=== PATIENT | female | born 1980 | race Caucasian/White ===

== ENCOUNTER 2020-12-02 09:12 | Outpatient (CLI) | payer SELFPAY | END 2020-12-02 09:13 | disposition EMS.NT | LOC: EMS 09:12 | DX: M79.10 Myalgia, unspecified site (principal); R44.9 Unspecified symptoms and signs involving general sensations and perceptions ==

== ENCOUNTER 2021-11-19 16:36 | Outpatient (CLI) | payer OTHER | END 2021-11-19 16:37 | disposition EMS.NT | LOC: EMS 16:36 | DX: R50.9 Fever, unspecified (principal); R05.9 Cough, unspecified; R11.2 Nausea with vomiting, unspecified; Z20.822 Contact with and (suspected) exposure to COVID-19 ==

== ENCOUNTER 2021-11-21 08:32 | Outpatient (CLI) | payer OTHER | END 2021-11-21 08:33 | disposition critical access hospital (66) | LOC: EMS 08:32 | DX: R11.2 Nausea with vomiting, unspecified (principal); M54.50 Low back pain, unspecified; R07.9 Chest pain, unspecified; M54.2 Cervicalgia; Z20.822 Contact with and (suspected) exposure to COVID-19 | CPT/HCPCS: A0425; A0427 ==

== ENCOUNTER 2021-12-09 17:15 | Outpatient (CLI) | payer OTHER | END 2021-12-09 17:16 | disposition EMS.NT | LOC: EMS 17:15 | DX: F41.9 Anxiety disorder, unspecified (principal) ==

== ENCOUNTER 2023-03-03 18:40 | Emergency (ER) | payer OTHER ==
[2023-03-03] MEDS ORDERED: ONDANSETRON 4 MG/2 ML VIAL IVP STA (19:19)
--- NOTE | 2023-03-03 19:20 | ED Physician Documentation ---
PD HPI ABD PAIN - Stated complaint Stated Complaint: N/V/D - Chief complaint Chief Complaint: Abd Pain - History obtained from History obtained from: Patient - History of Present Illness Timing - details: Gradual onset Quality: Aching Location: All over / everywhere Radiation: Other (None) Improved by: Vomiting, BM Worsened by: No: Eating, Moving, Breathing, Position, Palpation Associated symptoms: Vomiting. No: Fever, Nausea, Hematemesis, Diarrhea, Constipation, Melena, Hematochezia, Dysuria, Hematuria, Chest pain, Dizzy, Near syncope / syncope, Loss of appetite, Weight loss, Vaginal bleeding, Vaginal dc, Other - Additional information Additional information: 42-year-old female presents with generalized abdominal pain as well as nausea vomiting and shakiness after she stopped eating marijuana edibles. The patient states she used 10-12 edibles a day to help control her anxiety and ADHD but due to finances she tried to cut back and she feels like she is now "withdrawing" from marijuana edibles. She feels very anxious, has nausea and vomiting and feels shaky. She has not had any diarrhea, was constipated a few days ago but that has improved. She denies any fever or chills, no chest pain or difficulty breathing, no urinary symptoms. She denies any other drug use, is on Zoloft for anxiety. She does see a counselor as well but has not talked to them about this yet. Review of Systems Constitutional: reports: Reviewed and negative Eyes: reports: Reviewed and negative Ears: reports: Reviewed and negative Cardiac: reports: Reviewed and negative Respiratory: reports: Reviewed and negative GI: reports: Abdominal Pain, Nausea, Vomiting. denies: Abdominal Swelling, Constipation, Diarrhea, Hematemesis, Bloody / black stool : reports: Reviewed and negative Skin: reports: Reviewed and negative Musculoskeletal: reports: Reviewed and negative Neurologic: reports: Reviewed and negative Psychiatric: reports: Anxiety. denies: Depressed, Suicidal, Homicidal, Hallucinations, Delusions, Insomnia PD PAST MEDICAL HISTORY - Past Medical History Past Medical History: Yes Cardiovascular: None Respiratory: None Endocrine/Autoimmune: None GI: None Psych: Anxiety - Present Medications Home Medications: Ambulatory Orders Medication Instructions Recorded Confirmed Citalopram [CeleXA] 10 mg PO DAILY 11/21/21 11/21/21 Famotidine [Pepcid] 20 mg PO BID #14 tablet 11/21/21 Hydrocodone/Acetaminophen 1 each PO PRN PRN 11/21/21 11/21/21 [Hydrocodone-Acetamin 10-325 mg] Ondansetron Odt [Zofran Odt] 4 mg TL Q6H PRN 11/21/21 11/21/21 Ondansetron Odt [Zofran] 4 mg TL Q6H PRN #15 tablet 11/21/21 Promethazine Supp [Phenergan Supp] 25 mg [place] Q6H PRN #5 supp 11/21/21 hydroCHLOROthiazide [Hydrodiuril] 12.5 mg PO DAILY 11/21/21 11/21/21 Ondansetron Odt [Zofran] 4 mg TL Q6H PRN #10 tablet 03/03/23 - Allergies Allergies/Adverse Reactions: Allergies Allergy/AdvReac Type Severity Reaction Status Date / Time prochlorperazine Allergy Mild Anaphylaxis Verified 03/03/23 18:46 [From Compazine] lisinopril Allergy Hives Verified 03/03/23 18:46 metoclopramide [From Reglan] Allergy Hives Verified 03/03/23 18:46 morphine Allergy Hives Verified 03/03/23 18:46 - Social History Does the pt smoke?: No Smoking Status: Never smoker PD ED PE NORMAL - Vitals Vital signs reviewed: Yes - General General: Alert and oriented X 3, No acute distress, Well developed/nourished, Other (Patient in no acute distress but extremely anxious, talking fast.) - HEENT HEENT: Atraumatic, Moist mucous membranes - Cardiac Cardiac: RRR, No murmur, No gallop, No rub - Respiratory Respiratory: No respiratory distress, Clear bilaterally - Abdomen Abdomen: Normal bowel sounds, Soft, Non tender, Non distended, No organomegaly - Derm Derm: Normal color, Warm and dry, No rash - Extremities Extremities: No deformity, No edema - Neuro Neuro: Alert and oriented X 3 Eye Opening: Spontaneous Motor: Obeys Commands Verbal: Oriented GCS Score: 15 - Psych Psych: Normal mood, Normal affect Results - Vitals Vitals: Vital Signs - 24 hr 03/03/23 03/03/23 03/03/23 18:46 19:52 21:10 Temperature 37.5 C Heart Rate 94 84 77 Respiratory 16 18 18 Rate Blood Pressure 160/90 H 141/103 H 156/90 H O2 Saturation 99 100 98 Oxygen O2 Source Room air - Labs Labs: Laboratory Tests 03/03/23 03/03/23 03/03/23 19:48 19:48 20:03 WBC 10.9 H RBC 4.48 Hgb 11.3 L Hct 36.1 L MCV 80.6 L MCH 25.2 L MCHC 31.3 L RDW 14.9 Plt Count 396 MPV 9.2 Neut # (Auto) 8.8 H Lymph # (Auto) 1.3 L [place] # (Auto) 0.7 Eos # (Auto) 0.1 Baso # (Auto) 0.0 Absolute Nucleated RBC 0.00 Nucleated RBC % 0.0 Sodium 137 Potassium 3.3 L Chloride 103 Carbon Dioxide 25 Anion Gap 9.0 BUN 9 Creatinine 0.7 Estimated GFR (MDRD) 92 Glucose 97 POC Whole Bld Glucose 79 Calcium 9.5 Total Bilirubin 0.4 AST 18 ALT 8 L Alkaline Phosphatase 48 Total Protein 6.8 Albumin 4.2 Globulin 2.6 Albumin/Globulin Ratio 1.6 Lipase 13 Urine Color Urine Clarity Urine pH Ur Specific [place] Urine Protein Urine Glucose (UA) Urine Ketones Urine Occult Blood Urine Nitrite Urine Bilirubin Urine Urobilinogen Ur Leukocyte Esterase Ur Microscopic Review Urine Culture Comments 03/03/23 20:20 WBC RBC Hgb Hct MCV MCH MCHC RDW Plt Count MPV Neut # (Auto) Lymph # (Auto) [place] # (Auto) Eos # (Auto) Baso # (Auto) Absolute Nucleated RBC Nucleated RBC % Sodium Potassium Chloride Carbon Dioxide Anion Gap BUN Creatinine Estimated GFR (MDRD) Glucose POC Whole Bld Glucose Calcium Total Bilirubin AST ALT Alkaline Phosphatase Total Protein Albumin Globulin Albumin/Globulin Ratio Lipase Urine Color YELLOW Urine Clarity CLEAR Urine pH 7.0 Ur Specific [place] 1.010 Urine Protein NEGATIVE Urine Glucose (UA) NEGATIVE Urine Ketones 15 H Urine Occult Blood NEGATIVE Urine Nitrite NEGATIVE Urine Bilirubin NEGATIVE Urine Urobilinogen 0.2 (NORMAL) Ur Leukocyte Esterase NEGATIVE Ur Microscopic Review NOT INDICATED Urine Culture Comments NOT INDICATED PD Medical Decision Making - ED course Complexity details: reviewed results, re-evaluated patient, considered differential, d/w patient ED course: 42-year-old female presented with generalized abdominal pain as well as nausea vomiting diarrhea and shakiness. She attributes this to suddenly decreasing her marijuana consumption however she is continuing to use some marijuana. Patient is quite anxious on arrival here but has stable vital signs. Physical exam is otherwise unremarkable, she has no peritoneal signs, no vomiting here. I considered cannabinoid hyperemesis, gastroenteritis, pancreatitis, cholecystitis, less likely colitis or obstruction; she had no sx of UTI. We did obtain labs which are generally reassuring, she has a very mild leukocytosis at 10.9 with otherwise stable CBC, her CMP reveals mild hypokalemia, otherwise stable. Urinalysis negative for signs of infection. The patient received on 1 L of normal saline as well as 4 mg of IV Zofran and 1 mg of IV Ativan with significant improvement in her symptoms. She also received 15 mg of IV Toradol. Her abdominal pain is resolved, she has not had any nausea or vomiting here, she has been able to tolerate oral fluids here without difficulty. She is feeling substantially better. I discussed with patient this may be a viral illness, may be secondary to Her chronic cannabis use with cannabis hyperemesis or potentially stress response due to decreased use. In any case, I do not think that a CT scan would change the management today. I recommended she continue to reduce her cannabis use, adhere to a clear liquid diet for the next day or so until symptoms improve and she can take Zofran as needed for nausea and vomiting. If she has worsening symptoms, abdominal pain, fever or new concerns, return to the ER. Departure - Departure Disposition: 01 Home, Self Care Clinical Impression: Nausea and vomiting Qualifiers: Vomiting type: unspecified Qualified Code(s): R11.2 - Nausea with vomiting, unspecified Condition: Good Instructions: Abdominal Pain, ED Nausea Vomiting Prescriptions: Ondansetron Odt [Zofran] 4 mg TL Q6H PRN #10 tablet PRN Reason: Nausea / Vomiting Comments: You presented with nausea and vomiting. This may be due to your marijuana use or your sudden decrease in use. It does not appear to be due to a serious abdominal infection at this time. Your labs are stable. You responded well to medication here and have tolerated oral fluids. Please stick to clear liquids today (apple juice, sprite, gingerale, jello, etc). You can slowly advance your diet as tolerated in the next 1-2 days. I have given you a short course of nausea medication to use only if needed. Please follow up with your primary doctor in the next 1-2 weeks. Return if you have worsening symptoms. Medication sent to [facility] in [place]. Forms: PCP List Discharge Date/Time: 03/03/23 21:10
[2023-03-03] MEDS ORDERED: KETOROLAC 30 MG/ML VIAL IVP STA (19:45)
[2023-03-03 19:59] LABS: BASOPHILS % (AUTO) 0.3 %; EOSINOPHILS # (AUTO) 0.1 10^3/uL (0.0-0.7); EOSINOPHILS % (AUTO) 0.6 %; HCT - HEMATOCRIT 36.1 % (37.0-47.0); HGB - HEMOGLOBIN 11.3 g/dL (12.0-16.0); LYMPHOCYTES # (AUTO) 1.3 10^3/uL (1.5-3.5); MEAN CORPUSCULAR HEMOGLOBIN 25.2 pg (27.0-31.0); MEAN CORPUSCULAR HGB CONC 31.3 g/dL (32.0-36.0); MEAN CORPUSCULAR VOLUME 80.6 fL (81.0-99.0); MEAN PLATELET VOLUME 9.2 fL (7.9-10.8); MONOCYTES # (AUTO) 0.7 10^3/uL (0.0-1.0); MONOCYTES % (AUTO) 6.2 %; NEUTROPHILS # (AUTO) 8.8 10^3/uL (1.5-6.6); NEUTROPHILS % (AUTO) 80.5 %; PLT - PLATELET COUNT 396 10^3/uL (130-450); RED BLOOD COUNT 4.48 10^6/uL (4.20-5.40); RED CELL DISTRIBUTION WIDTH 14.9 % (12.0-15.0); WHITE BLOOD COUNT 10.9 x10^3/uL (4.8-10.8)
[2023-03-03] MEDS ORDERED: SODIUM CHLORIDE 0.9% 1,000 ML IV STA (20:06)
[2023-03-03] MEDS ORDERED: LORazepam 2 MG/ML VIAL IVP STA (20:06)
[2023-03-03 20:11] LABS: ALBUMIN 4.2 g/dL (3.2-5.5); ALBUMIN/GLOBULIN RATIO 1.6 (1.0-2.2); BILIRUBIN,TOTAL 0.4 mg/dL (0.2-1.0); CALCIUM 9.5 mg/dL (8.5-10.3); CREATININE 0.7 mg/dL (0.6-1.3); POTASSIUM 3.3 mmol/L (3.5-4.5); TOTAL PROTEIN 6.8 g/dL (6.4-8.9)
[2023-03-03 20:30] LABS: BILIRUBIN,URINE NEGATIVE (NEGATIVE); GLUCOSE, URINE (UA) NEGATIVE (NEGATIVE); KETONES,URINE (UA) 15 mg/dL (NEGATIVE); LEUKOCYTE ESTERASE, URINE NEGATIVE (NEGATIVE); NITRITE,URINE NEGATIVE (NEGATIVE); OCCULT BLOOD,URINE NEGATIVE (NEGATIVE); PROTEIN,URINE NEGATIVE (NEGATIVE); UROBILINOGEN,URINE 0.2 (NORMAL) E.U./dL (NORMAL)
[2023-03-03 20:33] LABS: CLARITY,URINE CLEAR (CLEAR)
[2023-03-03] MEDS ORDERED: ONDANSETRON ODT 4 MG TABLET TL STA (20:39)
[2023-03-03] MEDS ORDERED: ONDANSETRON ODT 4 MG Prepack 2 TL PRN (20:39)
[2023-03-03 21:18] VITALS: BP 156/90; O2SAT 98
== END 2023-03-03 21:10 | disposition home or self-care (01) ==
LOC: ED 18:40
DX: R11.2 Nausea with vomiting, unspecified (principal)
CPT/HCPCS: 36415; 80053; 81003; 83690; 85025; 96361; 96374; 96375; 99283; 99284; J2060; 81001; 87086

== ENCOUNTER 2023-03-04 06:55 | Outpatient (CLI) | payer OTHER | END 2023-03-04 06:56 | disposition critical access hospital (66) | LOC: EMS 06:55 | DX: R11.2 Nausea with vomiting, unspecified (principal); F41.9 Anxiety disorder, unspecified; R25.1 Tremor, unspecified | CPT/HCPCS: A0425; A0429 ==

== ENCOUNTER 2023-03-04 07:12 | Emergency (ER) | payer OTHER ==
--- NOTE | 2023-03-04 07:31 | ED Physician Documentation ---
PD HPI ALTERED MENTAL STATUS - Stated complaint Stated Complaint: NAUSEA/SOA - History obtained from History obtained from: Patient, EMS - History of Present Illness Timing - onset: How many days ago (2-3) Timing - duration: Days Timing - details: Gradual onset, Still present Quality / character: Agitated, Other (nausea and vomting, anxious.) Contributing factors: Recent med change (she states had stopped using Flovent MDI few days ago, but also had stopped using Cannibis - had been eating 10-12 edibles daily to help with anxiety. Stopped taking these.). No: Diabetic, Recent illness Basline status: Alert and oriented X 3, Ambulatory, Independent Similar symptoms before: Has not had sx before Recently seen: Emergency Dept (yesterday for nausea and vomiting mostly, but anxious too. Improved with Ativan dose in ER.) Review of Systems Constitutional: denies: Fever, Chills Neurologic: denies: Focal weakness, Numbness, Headache PD PAST MEDICAL HISTORY - Past Medical History Cardiovascular: None Respiratory: None Endocrine/Autoimmune: None GI: None Psych: Depression, Anxiety, Other (denies history of bipolar/cristian.) - Present Medications Home Medications: Ambulatory Orders Medication Instructions Recorded Confirmed Citalopram [CeleXA] 10 mg PO DAILY 11/21/21 11/21/21 Famotidine [Pepcid] 20 mg PO BID #14 tablet 11/21/21 Hydrocodone/Acetaminophen 1 each PO PRN PRN 11/21/21 11/21/21 [Hydrocodone-Acetamin 10-325 mg] Ondansetron Odt [Zofran Odt] 4 mg TL Q6H PRN 11/21/21 11/21/21 Ondansetron Odt [Zofran] 4 mg TL Q6H PRN #15 tablet 11/21/21 Promethazine Supp [Phenergan Supp] 25 mg [place] Q6H PRN #5 supp 11/21/21 hydroCHLOROthiazide [Hydrodiuril] 12.5 mg PO DAILY 11/21/21 11/21/21 Ondansetron Odt [Zofran] 4 mg TL Q6H PRN #10 tablet 03/03/23 LORazepam [Ativan] 1 mg PO BID PRN #12 tablet 03/04/23 - Allergies Allergies/Adverse Reactions: Allergies Allergy/AdvReac Type Severity Reaction Status Date / Time prochlorperazine Allergy Mild Anaphylaxis Verified 03/03/23 18:46 [From Compazine] lisinopril Allergy Hives Verified 03/03/23 18:46 metoclopramide [From Reglan] Allergy Hives Verified 03/03/23 18:46 morphine Allergy Hives Verified 03/03/23 18:46 - Social History Does the pt smoke?: No Smoking Status: Never smoker PD ED PE NORMAL - Vitals Vital signs reviewed: Yes - General General: Alert and oriented X 3, Well developed/nourished, Other (very anxious, pressured speech, and tangential. ) - Neck Neck: Supple, no meningeal sign, No adenopathy - Cardiac Cardiac: RRR, No murmur - Respiratory Respiratory: Clear bilaterally - Derm Derm: Normal color, Warm and dry - Neuro Neuro: Alert and oriented X 3, No motor deficit, No sensory deficit, Normal speech - Psych Psych: No: Normal affect (anxious and agitated. ) Results - Vitals Vitals: Vital Signs - 24 hr 03/04/23 03/04/23 07:21 09:56 Temperature 36.2 C L Heart Rate 85 88 Respiratory 18 18 Rate Blood Pressure 157/101 H 145/98 H O2 Saturation 100 97 Oxygen O2 Source Room air - Labs Labs: Laboratory Tests 03/04/23 07:47 Sodium 138 Potassium 3.2 L Chloride 104 Carbon Dioxide 26 Anion Gap 8.0 BUN 9 Creatinine 0.7 Estimated GFR (MDRD) 92 Glucose 110 H Calcium 9.3 Magnesium 1.7 TSH 1.55 PD Medical Decision Making - ED course Complexity details: reviewed results (basic labs and chemistry panel done with abnormalities of just low potassium 3.2. TSH normal. ), re-evaluated patient (improved with fluids and Ativan. I think she is having anxiety and symptoms related to cannibis withdrawal. Other consideration would be latent bipolar with now manic episode. ), considered differential, d/w patient Departure - Departure Disposition: 01 Home, Self Care Clinical Impression: Anxiety, Feeling agitated, Cannabis withdrawal Condition: Stable Prescriptions: LORazepam [Ativan] 1 mg PO BID PRN #12 tablet PRN Reason: Anxiety Comments: I do not believe he would be having any symptoms from the Flovent discontinuation. If anything steroids can make you feel little agitated or trouble sleeping so as you are stopping the use if anything things should be improved. More likely your symptoms would be related to cannabis discontinuation and symptoms of that. In the short-term we could have you take some lorazepam to help with the symptoms as your body gets more used to not having the cannabis. I prescribed lorazepam twice daily for the next 6 days. If you can decrease to once daily after a few days would be good. Follow-up with your primary care regarding any further duration. If you are needing medications for longer to help with anxiety and agitation, it would be other types of medicines that would be preferred for longer use rather than the benzodiazepines like lorazepam. 1 of these would be trazodone to be taken at night. I am not sure you will need medications longer term so for now just the above prescription and follow-up with your primary care. Forms: PCP List Discharge Date/Time: 03/04/23 09:59
[2023-03-04] MEDS ORDERED: LORazepam 2 MG/ML VIAL IVP STA (07:33)
[2023-03-04] MEDS ORDERED: SODIUM CHLORIDE 0.9% 1,000 ML IV STA (07:33)
[2023-03-04 08:06] LABS: CALCIUM 9.3 mg/dL (8.5-10.3); CREATININE 0.7 mg/dL (0.6-1.3); MAGNESIUM 1.7 mg/dL (1.7-2.3); POTASSIUM 3.2 mmol/L (3.5-4.5)
[2023-03-04] MEDS ORDERED: POTASSIUM BICARB 25 MEQ TABLET PO STA (08:14)
[2023-03-04 08:21] LABS: THYROID STIMULATING HORMONE 1.55 uIU/mL (0.34-5.60)
[2023-03-04 10:00] VITALS: BP 145/98; O2SAT 97
== END 2023-03-04 09:59 | disposition home or self-care (01) ==
LOC: EDUNIT# → ED 07:12
DX: F12.23 Cannabis dependence with withdrawal (principal); F41.9 Anxiety disorder, unspecified
CPT/HCPCS: 36415; 80048; 83735; 84443; 96374; 99283; A9270; J2060

== ENCOUNTER 2023-04-23 07:18 | Emergency (ER) | payer OTHER ==
[2023-04-23] MEDS ORDERED: MECLIZINE 12.5 MG TABLET PO STA (08:11)
[2023-04-23] MEDS ORDERED: ONDANSETRON ODT 4 MG TABLET TL STA (08:11)
[2023-04-23 09:29] LABS: BILIRUBIN,URINE NEGATIVE (NEGATIVE); GLUCOSE, URINE (UA) NEGATIVE (NEGATIVE); KETONES,URINE (UA) NEGATIVE (NEGATIVE); LEUKOCYTE ESTERASE, URINE NEGATIVE (NEGATIVE); NITRITE,URINE NEGATIVE (NEGATIVE); OCCULT BLOOD,URINE NEGATIVE (NEGATIVE); PROTEIN,URINE NEGATIVE (NEGATIVE); UROBILINOGEN,URINE 0.2 (NORMAL) E.U./dL (NORMAL)
[2023-04-23 09:31] LABS: CLARITY,URINE CLEAR (CLEAR); HCG UR QUAL NEGATIVE
--- NOTE | 2023-04-23 09:31 | ED Physician Documentation ---
History of Present Illness - Stated complaint Stated Complaint: DIZZY/EAR PX - Chief complaint Chief Complaint: General - History obtained from History obtained from: Patient - Additonal information Additional information: Patient is a 43-year-old female presenting for evaluation of left ear fullness for the past 2 days along with feeling dizziness with changing positions. Patient reports a history of vertigo and this feels the same as prior episodes. She has been on meclizine in the past but currently does not have any. She states that the dizziness is worse when she is standing. She describes it as feeling a spinning sensation. She reports associated nausea but no vomiting. Denies head injury. Does not take a blood thinner. Also reported noticing some discomfort with urination the last 2 days but today it has resolved. She reports it was a stinging sensation at the end of her stream that only happened a couple of times. Denies blood in her urine. No chest pain, shortness of air, abdominal symptoms. Review of Systems Constitutional: denies: Fever Ears: reports: Ear pain Cardiac: denies: Chest pain / pressure Respiratory: denies: Dyspnea, Cough GI: denies: Abdominal Pain Neurologic: denies: Syncope PD PAST MEDICAL HISTORY - Past Medical History Cardiovascular: None Respiratory: None Endocrine/Autoimmune: None GI: None Psych: Depression, Anxiety, Other - Present Medications Home Medications: Ambulatory Orders Medication Instructions Recorded Confirmed Citalopram [CeleXA] 10 mg PO DAILY 11/21/21 11/21/21 Famotidine [Pepcid] 20 mg PO BID #14 tablet 11/21/21 Hydrocodone/Acetaminophen 1 each PO PRN PRN 11/21/21 11/21/21 [Hydrocodone-Acetamin 10-325 mg] Ondansetron Odt [Zofran Odt] 4 mg TL Q6H PRN 11/21/21 11/21/21 Ondansetron Odt [Zofran] 4 mg TL Q6H PRN #15 tablet 11/21/21 Promethazine Supp [Phenergan Supp] 25 mg [place] Q6H PRN #5 supp 11/21/21 hydroCHLOROthiazide [Hydrodiuril] 12.5 mg PO DAILY 11/21/21 11/21/21 Ondansetron Odt [Zofran] 4 mg TL Q6H PRN #10 tablet 03/03/23 LORazepam [Ativan] 1 mg PO BID PRN #12 tablet 03/04/23 Fluticasone [Flonase] 1 sprays [place] BID PRN #16 gm 04/23/23 Meclizine HCl [Motion Sickness] 25 mg PO Q6H PRN #20 tablet 04/23/23 Ondansetron Odt [Zofran] 4 mg TL Q6H PRN #10 tablet 04/23/23 - Allergies Allergies/Adverse Reactions: Allergies Allergy/AdvReac Type Severity Reaction Status Date / Time prochlorperazine Allergy Mild Anaphylaxis Verified 03/03/23 18:46 [From Compazine] lisinopril Allergy Hives Verified 03/03/23 18:46 metoclopramide [From Reglan] Allergy Hives Verified 03/03/23 18:46 morphine Allergy Hives Verified 03/03/23 18:46 - Social History Does the pt smoke?: No Smoking Status: Never smoker PD ED PE NORMAL - General General: Alert and oriented X 3, No acute distress, Well developed/nourished - HEENT HEENT: Atraumatic, PERRL, EOMI, Moist mucous membranes, Pharynx benign, Other (No rotary nystagmus). No: Ears normal (Left serous otitis, right TM is normal, no cerumen in bilateral ear canals) - Neck Neck: Supple, no meningeal sign, No bony TTP - Cardiac Cardiac: RRR - Respiratory Respiratory: No respiratory distress, Clear bilaterally - Abdomen Abdomen: Soft, Non tender, Non distended - Derm Derm: Warm and dry - Extremities Extremities: No edema - Neuro Neuro: Alert and oriented X 3, load dispatcher local 2-12 intact, No motor deficit, No sensory deficit, Normal speech, Other (Normal unassisted gait, normal cerebellar testing) Results - Vitals Vitals: Vital Signs - 24 hr 04/23/23 04/23/23 07:28 09:38 Temperature 36.8 C Heart Rate 73 63 Respiratory 18 16 Rate Blood Pressure 140/89 H 131/90 H O2 Saturation 98 99 Oxygen O2 Source Room air - Labs Labs: Laboratory Tests 04/23/23 09:02 Urine Color YELLOW Urine Clarity CLEAR Urine pH 6.0 Ur Specific [place] 1.010 Urine Protein NEGATIVE Urine Glucose (UA) NEGATIVE Urine Ketones NEGATIVE Urine Occult Blood NEGATIVE Urine Nitrite NEGATIVE Urine Bilirubin NEGATIVE Urine Urobilinogen 0.2 (NORMAL) Ur Leukocyte Esterase NEGATIVE Ur Microscopic Review NOT INDICATED Urine Culture Comments NOT INDICATED Urine HCG, Qual NEGATIVE PD Medical Decision Making - ED course Complexity details: re-evaluated patient ED course: Patient is a 43-year-old female presenting for evaluation of vertigo-like symptoms with left ear fullness. No risk factors no known risk factors for stroke. Normal neuroexam including gait. Patient was given meclizine and Zofran with improvement in her symptoms. She reported having some dysuria the past 2 days but none today. Urinalysis is negative for infection or . She has no abdominal tenderness noted on exam. Patient counseled on treatment plan with meclizine and Zofran as needed as well as concerning symptoms to return for. Departure - Departure Disposition: 01 Home, Self Care Clinical Impression: Vertigo, Acute serous otitis media, left ear Condition: Stable Instructions: ED Otitis Media Serous Adult, ED Vertigo Unspecified Prescriptions: Fluticasone [Flonase] 1 sprays [place] BID PRN #16 gm PRN Reason: Nasal Congestion Meclizine HCl [Motion Sickness] 25 mg PO Q6H PRN #20 tablet PRN Reason: Dizziness Ondansetron Odt [Zofran] 4 mg TL Q6H PRN #10 tablet PRN Reason: Nausea / Vomiting Comments: I have sent prescriptions to [facility] in [place] to help you with vertigo as well as nausea. I have also sent a prescription for a nasal spray to help with the fullness in your here which appears to be related to fluid buildup. If you develop any worsening symptoms such as a severe headache, worsening vertigo or have any new concerns please return to the ER. Your urine does not show signs of infection. Forms: PCP List Discharge Date/Time: 04/23/23 09:56
[2023-04-23 09:44] VITALS: BP 131/90; O2SAT 99
== END 2023-04-23 09:56 | disposition home or self-care (01) ==
LOC: ED 07:18
DX: H65.02 Acute serous otitis media, left ear (principal); R42 Dizziness and giddiness
CPT/HCPCS: 81003; 81025; 99283; A9270; Q0162; 81001; 87086

== ENCOUNTER 2023-11-06 21:16 | Emergency (ER) | payer OTHER ==
--- NOTE | 2023-11-06 23:32 | ED Physician Documentation ---
PD HPI HEADACHE - Stated complaint Stated Complaint: FLOYD - Chief complaint Chief Complaint: Neuro - History obtained from History obtained from: Patient - History of Present Illness Timing - onset: How many weeks ago (3) Timing - onset during: Rest Timing - duration: Weeks (3) Timing - details: Gradual onset, Still present Pain level max: 10 Pain level now: 10 Location: Front, Right, Left Quality: Throbbing Associated symptoms: Stiff neck, Nausea, Eye pain. No: Fever, Vomiting, Weakness, Numbness, Syncope, Seizure Improved by: Rest, Dark room, Quiet, Meds Worsened by: Light, Noise, Moving Contributing factors: Hypertension, Other (recently stopped cannabis (3wks)). No: Anticoagulated, Recent illness Similar symptoms before: Diagnosis (headache) Recently seen: Not recently seen - Additional information Additional information: Chinyere Khan is a 43-year-old female who reports that she has recently discontinued use of cannabis and she has now developed a headache which is been present for 3 weeks and is progressively worsening. She did have some minor head trauma associated with this without loss of consciousness and she does not believe that has anything to do with this. She has had some nausea she has not had vomiting she has significant photophobia associated with this she does have an allergy to Compazine and Reglan. Review of Systems Constitutional: denies: Fever Eyes: reports: Photophobia. denies: Decreased vision Ears: denies: Ear pain Nose: denies: Rhinorrhea / runny nose, Congestion Throat: denies: Sore throat Cardiac: denies: Chest pain / pressure, Palpitations Respiratory: denies: Dyspnea, Cough GI: reports: Nausea. denies: Abdominal Pain, Vomiting, Constipation, Diarrhea : denies: Dysuria, Frequency Skin: denies: Rash Musculoskeletal: reports: Neck pain. denies: Back pain, Extremity pain Neurologic: reports: Near syncope. denies: Generalized weakness, Focal weakness, Numbness Endocrine: reports: Polydypsia, Polyuria PD PAST MEDICAL HISTORY - Past Medical History Past Medical History: Yes Cardiovascular: None Respiratory: None Neuro: Headaches Endocrine/Autoimmune: None GI: None PET COUNSELOR: None : Kidney stones HEENT: None Psych: Depression, Anxiety, Other Musculoskeletal: None Derm: None - Past Surgical History Past Surgical History: Yes /PET COUNSELOR: Hysterectomy - Present Medications Home Medications: Ambulatory Orders Medication Instructions Recorded Confirmed Citalopram [CeleXA] 20 mg PO DAILY 11/21/21 11/06/23 Famotidine [Pepcid] 20 mg PO BID #14 tablet 11/21/21 11/06/23 Hydrocodone/Acetaminophen 1 each PO PRN PRN 11/21/21 11/06/23 [Hydrocodone-Acetamin 10-325 mg] Ondansetron Odt [Zofran Odt] 4 mg TL Q6H PRN 11/21/21 11/06/23 Ondansetron Odt [Zofran] 4 mg TL Q6H PRN #15 tablet 11/21/21 11/06/23 Promethazine Supp [Phenergan Supp] 25 mg DC Q6H PRN #5 supp 11/21/21 11/06/23 Ondansetron Odt [Zofran] 4 mg TL Q6H PRN #10 tablet 03/03/23 LORazepam [Ativan] 1 mg PO BID PRN #12 tablet 03/04/23 11/06/23 Fluticasone [Flonase] 1 sprays [facility] BID PRN #16 gm 04/23/23 11/06/23 Meclizine HCl [Motion Sickness] 25 mg PO Q6H PRN #20 tablet 04/23/23 11/06/23 Ondansetron Odt [Zofran] 4 mg TL Q6H PRN #10 tablet 04/23/23 - Allergies Allergies/Adverse Reactions: Allergies Allergy/AdvReac Type Severity Reaction Status Date / Time prochlorperazine Allergy Mild Anaphylaxis Verified 11/06/23 21:29 [From Compazine] lisinopril Allergy Hives Verified 11/06/23 21:29 metoclopramide [From Reglan] Allergy Hives Verified 11/06/23 21:29 morphine Allergy Hives Verified 11/06/23 21:29 - Social History Does the pt smoke?: No Smoking Status: Never smoker Does the pt drink ETOH?: No Does the pt have substance abuse?: No - Immunizations Immunizations are current?: Yes PD ED PE NORMAL - Vitals Vital signs reviewed: Yes (hypertensive ) - General General: Alert and oriented X 3, No acute distress, Well developed/nourished - HEENT HEENT: Atraumatic, PERRL, EOMI, Other (photophobic) - Neck Neck: Supple, no meningeal sign, No bony TTP - Cardiac Cardiac: RRR, No murmur - Respiratory Respiratory: No respiratory distress, Clear bilaterally - Abdomen Abdomen: Normal bowel sounds, Soft, Non tender, Non distended, No organomegaly - Back Back: No CVA TTP, No spinal TTP - Derm Derm: Normal color, Warm and dry, No rash - Extremities Extremities: No deformity, No edema - Neuro Neuro: Alert and oriented X 3, supervising producer 2-12 intact, No motor deficit, No sensory deficit, Normal speech Eye Opening: Spontaneous Motor: Obeys Commands Verbal: Oriented GCS Score: 15 - Psych Psych: Normal mood, Normal affect Results - Vitals Vitals: Vital Signs - 24 hr 11/06/23 11/06/23 11/07/23 21:22 23:28 01:00 Temperature 37.1 C Heart Rate 73 74 82 Respiratory 18 16 15 Rate Blood Pressure 159/93 H 145/67 H 138/68 H O2 Saturation 99 98 99 11/07/23 02:32 Temperature 36.3 C L Heart Rate 70 Respiratory 16 Rate Blood Pressure 133/67 H O2 Saturation 99 Oxygen O2 Source Room air - Labs Labs: Laboratory Tests 11/06/23 11/06/23 11/07/23 23:50 23:50 00:05 WBC 12.2 H RBC 4.47 Hgb 10.7 L Hct 35.0 L MCV 78.3 L MCH 23.9 L MCHC 30.6 L RDW 16.8 H Plt Count 452 H MPV 8.9 Neut # (Auto) 6.4 Lymph # (Auto) 4.4 H [place] # (Auto) 0.9 Eos # (Auto) 0.5 Baso # (Auto) 0.1 Absolute Nucleated RBC 0.00 Nucleated RBC % 0.0 Sodium 138 Potassium 3.4 L Chloride 104 Carbon Dioxide 28 Anion Gap 6.0 BUN 26 H Creatinine 0.9 Estimated GFR (MDRD) 68 L Glucose 90 Calcium 9.3 Total Bilirubin 0.2 AST 11 ALT 11 Alkaline Phosphatase 55 Total Protein 6.5 Albumin 3.8 Globulin 2.7 Albumin/Globulin Ratio 1.4 Lipase 24 Urine Color COLORLESS Urine Clarity CLEAR Urine pH 7.0 Ur Specific [place] <=1.005 Urine Protein NEGATIVE Urine Glucose (UA) NEGATIVE Urine Ketones NEGATIVE Urine Occult Blood NEGATIVE Urine Nitrite NEGATIVE Urine Bilirubin NEGATIVE Urine Urobilinogen 0.2 (NORMAL) Ur Leukocyte Esterase NEGATIVE Ur Microscopic Review NOT INDICATED Urine Culture Comments NOT INDICATED - Rads (name of study) CT head Relevant Findings:: Prelim report reviewed (Impression: No acute intracranial pathology.), EMP independent interpretation of test Procedures - IVC sono (time) 2320 Bedside IVC sono: IVC measures (cm) (0.96), Dehydration (est 1-2 liter deficit) PD Medical Decision Making - ED course Complexity details: reviewed results, re-evaluated patient, considered differential, d/w patient Reviewed Lab Results: We reviewed a complete blood cell count showing an elevated white blood cell count of 12.2 a depressed hemoglobin and hematocrit at 10.7 and 35.0 and these are similar to prior from 1 year ago. Platelets are elevated at 452,000. Chemistries show a potassium low at 3.4 BUN is elevated at 26 the glucose is normal at 90 creatinine normal at 0.9 liver functions normal lipase normal urinalysis normal. These laboratory results do not indicate a specific diagnosis they do confirm the possibility of dehydration with an elevated BUN. ED course: 43-year-old female presents to the emergency department with 3-week history of headache she is extremely photophobic she is allergic to Compazine. She is given a liter of saline 25 mg of Benadryl and 30 mg of Toradol IV with improvement in her headache. She is concerned this may be related to cannabis withdrawal and I believe this is likely. She feels improved and wants to go home. Departure - Departure Disposition: 01 Home, Self Care Clinical Impression: Cephalalgia Qualifiers: Headache type: tension-type Headache chronicity pattern: acute headache Intractability: not intractable Qualified Code(s): G44.209 - Tension-type headache, unspecified, not intractable Condition: Stable Instructions: ED Headache Tension [facility] Comments: Lila, today it looks like you have a tension type headache and you appeared to have responded to the treatment we have provided. On our workup today we did a CT scan of your head which was normal. We did blood work showing mild anemia similar to what you have had previously and there was no evidence of diabetes. My recommendation is to continue to abstain from the cannabis continue to consume fluids and follow-up as needed. Forms: PCP List Discharge Date/Time: 11/07/23 02:32
[2023-11-06] MEDS: SODIUM CHLORIDE 0.9% 1,000 ML IV STA (23:49)
[2023-11-06] MEDS: KETOROLAC 30 MG/ML VIAL IVP STA (23:50)
[2023-11-06] MEDS: diphenhydrAMINE INJ 50 MG/ML VIAL IVP STA (23:50)
[2023-11-07 00:11] LABS: BASOPHILS # (AUTO) 0.1 10^3/uL (0.0-0.1); BASOPHILS % (AUTO) 0.5 %; EOSINOPHILS # (AUTO) 0.5 10^3/uL (0.0-0.7); EOSINOPHILS % (AUTO) 4.4 %; HGB - HEMOGLOBIN 10.7 g/dL (12.0-16.0); LYMPHOCYTES # (AUTO) 4.4 10^3/uL (1.5-3.5); LYMPHOCYTES % (AUTO) 35.7 %; MEAN CORPUSCULAR HEMOGLOBIN 23.9 pg (27.0-31.0); MEAN CORPUSCULAR HGB CONC 30.6 g/dL (32.0-36.0); MEAN CORPUSCULAR VOLUME 78.3 fL (81.0-99.0); MEAN PLATELET VOLUME 8.9 fL (7.9-10.8); MONOCYTES # (AUTO) 0.9 10^3/uL (0.0-1.0); MONOCYTES % (AUTO) 7.1 %; NEUTROPHILS # (AUTO) 6.4 10^3/uL (1.5-6.6); NEUTROPHILS % (AUTO) 52.1 %; PLT - PLATELET COUNT 452 10^3/uL (130-450); RED BLOOD COUNT 4.47 10^6/uL (4.20-5.40); RED CELL DISTRIBUTION WIDTH 16.8 % (12.0-15.0); WHITE BLOOD COUNT 12.2 x10^3/uL (4.8-10.8)
--- NOTE | 2023-11-07 00:11 | CT Report ---
PROCEDURE: Head WO INDICATIONS: concussion, 3wk headache TECHNIQUE: Noncontrast 4.5 mm thick angled axial sections acquired from the foramen magnum to the vertex. For r adiation dose reduction, the following was used: automated exposure control, adjustment of mA and/or kV according to patient size. COMPARISON: None. FINDINGS: Image quality: Excellent. CSF spaces: Basal cisterns are patent. No extra-axial fluid collections. Ventricles are normal in size and shape. Brain: No midline shift. No intracranial masses or hemorrhage. Farrar-white matter interface is norm al. Skull and face: Calvarium and visualized facial bones are intact, without suspicious lesions. Sinuses: Visualized sinuses and mastoids are clear. IMPRESSION: No acute intracranial pathology. Reviewed by: Rico Briones MD on 11/07/2023 12:10 AM PDT Approved by: Rico Briones MD on 11/07/2023 12:10 AM PDT Station ID: [id number]
[2023-11-07 00:16] LABS: BILIRUBIN,URINE NEGATIVE (NEGATIVE); GLUCOSE, URINE (UA) NEGATIVE (NEGATIVE); KETONES,URINE (UA) NEGATIVE (NEGATIVE); LEUKOCYTE ESTERASE, URINE NEGATIVE (NEGATIVE); NITRITE,URINE NEGATIVE (NEGATIVE); OCCULT BLOOD,URINE NEGATIVE (NEGATIVE); PROTEIN,URINE NEGATIVE (NEGATIVE); UROBILINOGEN,URINE 0.2 (NORMAL) E.U./dL (NORMAL)
[2023-11-07 00:17] LABS: CLARITY,URINE CLEAR (CLEAR)
[2023-11-07 00:25] LABS: ALBUMIN 3.8 g/dL (3.2-5.5); ALBUMIN/GLOBULIN RATIO 1.4 (1.0-2.2); BILIRUBIN,TOTAL 0.2 mg/dL (0.2-1.0); CALCIUM 9.3 mg/dL (8.5-10.3); CREATININE 0.9 mg/dL (0.6-1.3); POTASSIUM 3.4 mmol/L (3.5-4.5); TOTAL PROTEIN 6.5 g/dL (6.4-8.9)
[2023-11-07 01:40] VITALS: O2SAT 99
[2023-11-07 02:42] VITALS: BP 133/67
[2023-11-07 10:10] LABS: ESTIMATED AVERAGE GLUCOSE 105 mg/dL (70-100); HEMOGLOBIN A1c% 5.3 % (4.27-6.07)
== END 2023-11-07 02:32 | disposition home or self-care (01) ==
LOC: ED 21:16
DX: G44.209 Tension-type headache, unspecified, not intractable (principal); E86.0 Dehydration; D64.9 Anemia, unspecified; Z88.8 Allergy status to other drugs, medicaments and biological substances
CPT/HCPCS: 36415; 70450; 80053; 81003; 83036; 83690; 85025; 96374; 99283; 99284; J1200; 81001; 87086

== ENCOUNTER 2023-11-28 15:40 | Outpatient (CLI) | payer OTHER | END 2023-11-28 23:59 | disposition critical access hospital (66) | LOC: EMS 15:40 | DX: R42 Dizziness and giddiness (principal); R20.0 Anesthesia of skin; R51.9 Headache, unspecified | CPT/HCPCS: A0425; A0429 ==

== ENCOUNTER 2023-11-28 15:57 | Emergency (ER) | payer OTHER ==
[2023-11-28 16:22] VITALS: BP 157/111; O2SAT 99
--- NOTE | 2023-11-28 16:55 | ED Physician Documentation ---
History of Present Illness - Stated complaint Stated Complaint: DIZZY/FLOYD - Chief complaint Chief Complaint: General - History obtained from History obtained from: Patient - Additonal information Additional information: The patient comes to the emergency department chief complaint of headache and elevated blood pressure. She states that she used to have a diagnosis of hypertension but after losing a large amount of weight, she was able to get off all of her medications. However, she has noticed that she is having some higher blood pressure readings in recent weeks and especially over the last couple of days. She states she has had a right-sided headache about midway back and that she has some numbness on the area of her scalp as well. She denies any neurologic symptoms anywhere else. She has had intermittent nausea with the headache. She denies any recent head trauma. She states that she is drinking about 6 bottles of water every day and does not think she is dehydrated. She denies any actual vomiting. No fevers. No neck pain. No other complaints at this time. PD PAST MEDICAL HISTORY - Past Medical History Cardiovascular: None Respiratory: None Neuro: Headaches Endocrine/Autoimmune: None GI: None COMMUNITY MARKETING MANAGER: None : Kidney stones HEENT: None Psych: Depression, Anxiety, Other Musculoskeletal: None Derm: None - Past Surgical History Past Surgical History: Yes /COMMUNITY MARKETING MANAGER: Hysterectomy - Present Medications Home Medications: Ambulatory Orders Medication Instructions Recorded Confirmed Citalopram [CeleXA] 20 mg PO DAILY 11/21/21 11/06/23 Famotidine [Pepcid] 20 mg PO BID #14 tablet 11/21/21 11/06/23 Hydrocodone/Acetaminophen 1 each PO PRN PRN 11/21/21 11/06/23 [Hydrocodone-Acetamin 10-325 mg] Ondansetron Odt [Zofran Odt] 4 mg TL Q6H PRN 11/21/21 11/06/23 Ondansetron Odt [Zofran] 4 mg TL Q6H PRN #15 tablet 11/21/21 11/06/23 Promethazine Supp [Phenergan Supp] 25 mg UT Q6H PRN #5 supp 11/21/21 11/06/23 Ondansetron Odt [Zofran] 4 mg TL Q6H PRN #10 tablet 03/03/23 LORazepam [Ativan] 1 mg PO BID PRN #12 tablet 03/04/23 11/06/23 Fluticasone [Flonase] 1 sprays BLANCA BID PRN #16 gm 04/23/23 11/06/23 Meclizine HCl [Motion Sickness] 25 mg PO Q6H PRN #20 tablet 04/23/23 11/06/23 Ondansetron Odt [Zofran] 4 mg TL Q6H PRN #10 tablet 04/23/23 - Allergies Allergies/Adverse Reactions: Allergies Allergy/AdvReac Type Severity Reaction Status Date / Time prochlorperazine Allergy Mild Anaphylaxis Verified 11/28/23 16:13 [From Compazine] lisinopril Allergy Hives Verified 11/28/23 16:13 metoclopramide [From Reglan] Allergy Hives Verified 11/28/23 16:13 morphine Allergy Hives Verified 11/28/23 16:13 - Social History Does the pt smoke?: No Smoking Status: Never smoker Does the pt drink ETOH?: No Does the pt have substance abuse?: No - Immunizations Immunizations are current?: Yes PD ED PE NORMAL - Vitals Vital signs reviewed: Yes - General General: Alert and oriented X 3, No acute distress, Well developed/nourished - HEENT HEENT: Atraumatic, EOMI, Moist mucous membranes - Neck Neck: Supple, no meningeal sign, No bony TTP - Cardiac Cardiac: RRR, No murmur - Respiratory Respiratory: No respiratory distress, Clear bilaterally - Abdomen Abdomen: Soft, Non tender, Non distended - Derm Derm: Normal color, Warm and dry, No rash - Extremities Extremities: No deformity, No edema - Neuro Neuro: Other (Alert, grossly intact.) - Psych Psych: Other (Anxious. Tearful.) Results - Vitals Vitals: Vital Signs - 24 hr 11/28/23 16:00 Temperature 37.4 C Heart Rate 96 Respiratory 22 Rate Blood Pressure 157/111 H O2 Saturation 99 Oxygen O2 Source Room air PD Medical Decision Making - ED course Complexity details: reviewed old records, reviewed results, re-evaluated patient, considered differential, d/w patient ED course: The patient was treated symptomatically with Xanax and IM Dilaudid. I did review her prior records. Her blood pressure here was in the 150s over low 100s and I discussed with the patient that she should keep a log of how her pressures are doing at home and schedule a follow-up with her primary to discuss whether she needs to be back on medication.The patient does not have any symptoms of hypertensive emergency and is stable for discharge home. Departure - Departure Disposition: Home, Self Care Clinical Impression: Hypertension Qualifiers: Hypertension type: unspecified Qualified Code(s): I10 - Essential (primary) hypertension Headache Qualifiers: Headache type: tension-type Headache chronicity pattern: acute headache Intractability: not intractable Qualified Code(s): G44.209 - Tension-type headache, unspecified, not intractable Condition: Stable Instructions: ED HTN Established, ED Cephalgia Unspecified Comments: You will need to follow-up with your primary doctor regarding your blood pressure if it continues to run high. It is not clear what is causing it to be high right at this time. We have treated you with medication that should help both your headache and your blood pressure, as well as the sense of anxiety. Please get plenty of rest tonight and continue to drink lots of fluids. Please schedule the next available appointment with your primary doctor. Forms: PCP List
[2023-11-28] MEDS: HYDROmorphone 1 MG/ML CARPUJECT IM STA (17:02)
[2023-11-28] MEDS: ALPRAZolam 0.25 MG TABLET PO STA (17:04)
== END 2023-11-28 18:19 | disposition home or self-care (01) ==
LOC: EDUNIT# → ED 15:57
DX: I10 Essential (primary) hypertension (principal); R51.9 Headache, unspecified; Z79.899 Other long term (current) drug therapy
CPT/HCPCS: 96372; 99283; A9270; J1170

== ENCOUNTER 2023-11-30 06:00 | Emergency (ER) | payer OTHER | END 2023-11-30 06:31 | disposition left against medical advice (07) | LOC: ED 06:00 | DX: Z53.21 Procedure and treatment not carried out due to patient leaving prior to being seen by health care provider (principal) ==